=== PATIENT | female | born 1985 | race Caucasian/White ===

== ENCOUNTER 2019-03-21 09:52 | Emergency (ER) | payer SELFPAY ==
[2019-03-21] MEDS ORDERED: HYDROcodone/Acetaminophen 5/325 mg Tablet ONE (10:58)
[2019-03-21] MEDS ORDERED: Clindamycin 150 MG CAP ONE (10:59)
[2019-03-21] MEDS ORDERED: Ibuprofen 800 MG TAB ONE (10:59)
== END 2019-03-21 11:20 | disposition home or self-care (01) ==
LOC: MADERS 09:52
DX: K02.9 Dental caries, unspecified (principal); F31.9 Bipolar disorder, unspecified; Z87.891 Personal history of nicotine dependence; Z79.899 Other long term (current) drug therapy
CPT/HCPCS: 99282

== ENCOUNTER 2019-07-28 09:09 | Emergency (ER) | payer SELFPAY ==
[~2019-07-28 09:09] MED LIST: Sodium Chloride 0.9% 100 ML BAG ONE; Sodium Chloride Irrig Solution 250 ML BOT ONE
[2019-07-28] MEDS ORDERED: Adacel (T-DAP) 0.5 ML SYRINGE ONE (09:42)
[2019-07-28] MEDS ORDERED: Fosphenytoin Sodium 500 mg/10 ml Vial ONE (09:49)
--- NOTE | 2019-07-28 10:18 | CT ---
Exam: CT brain PROVIDED CLINICAL HISTORY: Seizure COMPARISON: None FINDINGS: The ventricular system is normal in size and morphology. No evidence for intracranial hemorrhage or mass effect. The extracranial soft tissues and osseous structures demonstrate no evidence for an acute abnormality. IMPRESSION: No evidence for intracranial hemorrhage or mass effect.
--- NOTE | 2019-07-28 10:23 | CT ---
EXAM: CT Facial Bones WO Con PROVIDED CLINICAL HISTORY: Seizure COMPARISON: None FINDINGS: Evaluation is limited by patient motion. Given this limitation, no definite fracture is evident. The globes and other orbital contents appear normal. The paranasal sinuses appear free of significant opacity. IMPRESSION: No evidence for fracture with limitations due to motion.
--- NOTE | 2019-07-28 10:25 | CT ---
EXAM: CT cervical spine PROVIDED CLINICAL HISTORY: Seizure COMPARISON: None FINDINGS: No evidence for fracture or traumatic subluxation. No prevertebral soft tissue swelling apparent. Vi sualized lung apices appear clear. IMPRESSION: No evidence for fracture or traumatic subluxation.
== END 2019-07-28 11:04 | disposition home or self-care (01) ==
LOC: MADERS 09:09
DX: S01.81XA Laceration without foreign body of other part of head, initial encounter (principal); R56.9 Unspecified convulsions; F31.9 Bipolar disorder, unspecified; Z87.891 Personal history of nicotine dependence; Z23 Encounter for immunization; W22.8XXA Striking against or struck by other objects, initial encounter
CPT/HCPCS: 12013; 70450; 70486; 72125; 90715; 96365; J3490; Q2009